=== PATIENT | male | born 1985 | race Caucasian/White ===

== ENCOUNTER 2018-12-03 17:14 | Emergency (ER) | payer OTHER ==
[~2018-12-03] VITALS: Ht 170.2 cm; Wt 81.8 kg
[2018-12-03 17:20] VITALS: Ht 170.2 cm; Wt 81.8 kg
--- NOTE | 2018-12-03 22:38 | ERD ---
ER Documentation Chief Complaint Chief Complaint Pt. PAM [place] suspected overdosed on heroin. Narcan received in field HPI 33-year-old male presents the ED via rescue ambulance after apparent opiate overdose. Paramedics report patient was found down with pinpoint pupils. After naloxone 2mg IV patient was awake and alert. He does not recall the event specifically but vehemently denies depression or suicidal ideations. No visual or auditory hallucinations. Denies chest pain, shortness of breath, palpitations, abdominal pain, nausea or vomiting. No headache, visual changes, focal weakness or numbness. No URI symptoms or cough. No fevers or chills. ROS All systems reviewed and are negative except as per history of present illness. Medications Home Meds Active Scripts Naloxone HCl nasal spray (Narcan 4 mg/0.1 mL nasal) 4 Mg [place], 4 MG NS .Q2-3MIN for OPIOID OVERDOSE, #2 SPRAY 0 Refills [place] 0.1 mL into one nostril. Repeat with second device into other nostril after 2-3 minutes if no or minimal response Prov:SAL LUA MD 12/03/18 Allergies Allergies: Coded Allergies: No Known Allergy (Unverified , 12/03/18) PMhx/Soc Reviewed in chart. As per HPI. History of Surgery: No Anesthesia Reaction: No Hx Neurological Disorder: No Hx Respiratory Disorders: No Hx Cardiac Disorders: No Hx Psychiatric Problems: No Hx Miscellaneous Medical Probl: No Hx Alcohol Use: Yes Hx Substance Use: Yes (Heroin) Smoking Status: Unknown if ever smoked FmHx No family history relevant to presenting complaint Physical Exam Vitals Vital Signs Date Temp Pulse Resp B/P (MAP) Pulse Ox O2 O2 Flow FiO2 Time Delivery Rate 12/04/18 97.8 87 16 107/63 95 Room Air 01:00 (78) Nasal Cannula 12/03/18 77 20 106/74 95 Nasal 18:47 (85) Cannula 12/03/18 97.3 100 22 113/74 100 17:20 (87) Physical Exam Const: Sleepy but easily arousable Head: Atraumatic Eyes: Normal Conjunctiva ENT: Normal External Ears, Nose and Mouth. Neck: Full range of motion. No meningismus. Resp: Sounds are equal and clear to auscultation bilaterally. No rales rhonchi or wheezes. Cardio: Regular rate and rhythm, no murmurs Abd: Soft, non tender, non distended. Normal bowel sounds Skin: No petechiae or rashes Back: No midline or flank tenderness Ext: No cyanosis, or edema Neur: Sleepy but easily arousable. Motor and sensory equal bilaterally. No focal deficit. Psych: Normal Mood and Affect Result Diagram: 12/03/18181912/03/181819 Results 24 hrs Laboratory Tests Test 12/03/18 18:20 12/03/18 18:35 White Blood Count 13.1 10^3/ul Red Blood Count 4.78 10^6/ul Hemoglobin 13.8 g/dl Hematocrit 41.2 % Mean Corpuscular Volume 86.2 fl Mean Corpuscular Hemoglobin 28.9 pg Mean Corpuscular Hemoglobin Concent 33.5 g/dl Red Cell Distribution Width 13.5 % Platelet Count 224 10^3/UL Mean Platelet Volume 10.3 fl Immature Granulocytes % 0.500 % Neutrophils % 87.8 % Lymphocytes % 5.7 % Monocytes % 5.1 % Eosinophils % 0.6 % Basophils % 0.3 % Nucleated Red Blood Cells % 0.0 /100WBC Immature Granulocytes # 0.060 10^3/ul Neutrophils # 11.5 10^3/ul Lymphocytes # 0.8 10^3/ul Monocytes # 0.7 10^3/ul Eosinophils # 0.1 10^3/ul Basophils # 0.0 10^3/ul Nucleated Red Blood Cells # 0.0 10^3/ul Sodium Level 138 mmol/L Potassium Level 3.6 mmol/L Chloride Level 103 mmol/L Carbon Dioxide Level 27 mmol/L Anion Gap 8 Blood Urea Nitrogen 11 mg/dl Creatinine 0.75 mg/dl Est Glomerular Filtrat Rate mL/min > 60 mL/min Glucose Level 121 mg/dl Calcium Level 9.4 mg/dl Total Bilirubin 0.1 mg/dl Direct Bilirubin 0.00 mg/dl Indirect Bilirubin 0.1 mg/dl Aspartate Amino Transf (AST/SGOT) 70 IU/L Alanine Aminotransferase (ALT/SGPT) 54 IU/L Alkaline Phosphatase 90 IU/L Total Protein 7.9 g/dl Albumin 4.4 g/dl Globulin 3.50 g/dl Albumin/Globulin Ratio 1.25 Salicylates Level < 1.0 mg/dl Acetaminophen Level < 10.0 ug/ml Ethyl Alcohol Level < 10.0 mg/dl Urine Color YELLOW Urine Clarity CLEAR Urine pH 7.0 Urine Specific [place] 1.012 Urine Ketones 1+ mg/dL Urine Nitrite NEGATIVE mg/dL Urine Bilirubin NEGATIVE mg/dL Urine Urobilinogen 2+ mg/dL Urine Leukocyte Esterase NEGATIVE Edwin/ul Urine Hemoglobin NEGATIVE mg/dL Urine Glucose 1+ mg/dL Urine Total Protein NEGATIVE mg/dl Urine Opiates Screen Positive Urine Barbiturates Negative Urine Amphetamines Screen POSITIVE Urine Benzodiazepines Screen Negative Urine Cocaine Screen Negative Urine Cannabinoids Negative Procedures/MDM DOCUMENTS REVIEWED: ED nurse, no prior records LAB INTERPRETATION: CBC reveals mild leukocytosis and anemia. Chemistry is unremarkable for electrolyte abnormalities, renal insufficiency or hyperglycemia. Urine drugs of abuse are positive for opiates and amphetamines. Blood alcohol level is 0. IMAGING: Chest AP portable. Cardiac silhouette is normal. The costophrenic angles are clear. No effusions or infiltrates. No abnormalities of the bony thorax. My interpretation. REEXAMINATION/REEVALUATION: Time: 22:25. Doing well. Alert and oriented. [employer] DECISION MAKIN-year-old male presents the ED via rescue ambulance after apparent opiate overdose reversed with naloxone. Stable for discharge with precautionary instructions and outpatient follow-up as counseled. OBSERVATION NOTE: At 17:18 the patient was entered into observation status to establish the need for admission. During this time the patient was treated for opiate overdose. Additionally, extensive evaluation including CBC, urine drugs of abuse screen, blood alcohol level and CXR were preformed and results interpreted as above. Vitals signs were monitored and current repeat exams were performed every 15-20 minutes. At 22:25 the patient was reexamined; alert, oriented with clear lungs and normal oxygenation. Based on these findings the patient was discharged from observation as it was determined that the patient was improved and met criteria for discharge. TOTAL OBSERVATION TIME: 5 hours. Counseled patient regarding diagnostic workup, diagnosis and need for followup. Extensive drug cessation counseling provided. Patient is given a prescription for intranasal naloxone and instructed on its use. Understands to return to ED if symptoms recur, worsen or any other concerns. Departure Diagnosis: Primary Impression: Opiate overdose Encounter type: initial encounter Injury intent: accidental or unintentional Qualified Codes: T40.601A - Poisoning by unspecified narcotics, accidental (unintentional), initial encounter Additional Impression: Methamphetamine abuse Condition: Stable SAL LUA MD Dec 03, 2018 22:38
[2018-12-03] MEDS ORDERED: NALO4SPR NS (22:39)
[2018-12-04 05:10] VITALS: BP 111/73; PULSE 78; RESP 16
== END 2018-12-04 05:10 | disposition home or self-care (01) ==
LOC: E/R 17:14
DX: T40.1X1A Poisoning by heroin, accidental (unintentional), initial encounter (principal); F15.10 Other stimulant abuse, uncomplicated; R40.2132 Coma scale, eyes open, to sound, at arrival to emergency department; R40.2352 Coma scale, best motor response, localizes pain, at arrival to emergency department; R40.2252 Coma scale, best verbal response, oriented, at arrival to emergency department
CPT/HCPCS: 36415; 71045; 80053; 80307; 81003; 85025; Z7502